=== PATIENT | male | born 1965 | race Hispanic/Latino ===

== ENCOUNTER 2018-01-27 08:00 | Emergency (ER) | payer OTHER ==
[~2018-01-27] VITALS: Ht 175.3 cm; Wt 113.4 kg
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
--- NOTE | 2018-01-27 08:00 | NUR ---
ARRIVAL 0723 STAFF PRESENT AT ARRIVAL DR MARIO ARREDONDO, RN N TANJA, RN B WILFREDO, RN T BHUPENDRA, RN C MARVEL, RT R LUKE, RN Héctor MCCOY, FUND ACCOUNTING MANAGER KAROLINE RODGERS WITH PT: EMS: QUIN LIFESTAR: KAITLYNN MCFADDEN ERIC, JAMES
--- NOTE | 2018-01-27 08:00 | NUR ---
ARRIVAL [facility] STATES UPON THEIR ARRIVAL TO ER THAT ON SCENE PT LOST PULSES, CPR WAS BEGUN AND EPI X 1 AMP GIVEN PER ACLS PROTOCOL. PT ACHEIVED ROSC AND CPR WAS STOPPED. PT HAD PULSES UPON ARRIVAL TO ER. Addendum: 01/27/18 at 1035 by ANNA ARRIVAL PT BEING VENTILATED VIA BVM. PT PLACED ON MONITOR.
--- NOTE | 2018-01-27 08:00 | NUR ---
BLOOD AT MEATUS PT CLOTHES REMOVED AT THIS TIME, BLOOD AT [facility]ATUS. [place] PERFORMED BY LIF[facility], PT PELVIS STABLE. DR MARTIN AWARE.
[2018-01-27] MEDS ORDERED: NS 1000ML 3,000 ML ONE (08:01)
[2018-01-27 08:02] VITALS: BP 129/79
--- NOTE | 2018-01-27 08:08 | NUR ---
RADIOLOGY FRANNY TEMPLETON BLOOD BANK LABORATORY TECHNOLOGIST AT BEDSIDE FOR CHEST AND PELVIS XRAY AT THIS TIME.
[2018-01-27 08:14] LABS: BASOPHIL % 0.4 % (0.0-0.2); EOSINOPHIL # 0.1 10^3/uL (0.0-0.2); HEMOGLOBIN 12.5 g/dL (13.9-16.3); LYMPHOCYTES # 5.1 10^3/uL (1.0-4.8); LYMPHOCYTES % 71.1 % (24.0-44.0); MEAN CELL HGB 31.3 pg (26-34); MEAN CELL HGB CONCENTRATION 32.3 g/dL (33-37); MEAN CORP VOLUME 96.8 fL (78-100); MEAN PLATELET VOLUME 12.5 fL (7.8-11.0); MONOCYTES # 0.3 10^3/uL (0.3-0.8); MONOCYTES % 3.9 % (5.0-12.0); NEUTROPHIL # 1.3 10^3/uL (1.8-7.7); NEUTROPHILS % 17.4 % (41.0-85.0); PLATELET COUNT 131 10^3/uL (150-400); RED CELL DISTRIBUTION WIDTH 12.7 % (11.5-14.5); WHITE BLOOD CELL 7.2 10^3/uL (4.5-11.0)
--- NOTE | 2018-01-27 08:15 | NUR ---
DR DARLINE GREGORIO NOTIFIED OF TRANSFER
--- NOTE | 2018-01-27 08:15 | NUR ---
GUERRERO 18 FR GUERRERO INSERTED BY Amrita HUIZAR RN USING STERILE TECHNIQUE. APPROXIMATELY 100ML OUTPUT OF BLOODY URINE.
--- NOTE | 2018-01-27 08:16 | PCM.EKG ---
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
--- NOTE | 2018-01-27 08:18 | NUR ---
ETT ETT PULLED BACK TO 23CM AT TEETH, 24CM AT LIP. PT CONTINUES TO BE VENTILATED VIA BVM.
[2018-01-27 08:19] VITALS: BP_SYST 124; BP_SYST 129; BP_DIAS 96
--- NOTE | 2018-01-27 08:21 | NUR ---
NGT NGT PLACED TO RIGHT NARE BY KAREN SNIDER. PT CONTINUES TO BE VENTILATED BY BVM.
--- NOTE | 2018-01-27 08:24 | DIREP ---
PROCEDURE:CHEST 1 VIEW COMPARISON:None. INDICATIONS:TUBE PLACEMENT FINDINGS: LUNGS/PLEURA:An endotracheal tube is in place with the tip in good position just below the clavicles. There is a small left pneumothorax. Infiltrate is seen in the left upper lobe. VASCULATURE:Normal. Unremarkable pulmonary vasculature. CARDIAC:Normal. No cardiac silhouette abnormality or cardiomegaly. MEDIASTINUM:Normal. No visible mass or adenopathy. BONES:There are multiple displaced left rib fractures. OTHER:Extensive subcutaneous emphysema is seen over the left side of the chest. Artifact from a backboard overlies the chest limiting evaluation. CONCLUSION:Placement of an endotracheal tube in good position. There is a small left pneumothorax with multiple displaced left rib fractures with extensive subcutaneous emphysema over the left chest. Infiltrate is seen in the left upper lobe. This report was called by telephone at 8:23 am on January 27, 2018 to Vasu Warner Mba . Dictated by: Dominick Rose M.D. on 01/27/2018 at 08:19 AM
--- NOTE | 2018-01-27 08:25 | NUR ---
[facility] CREW GETTING PT SECURED ON STRETCHER IN PREPARATION FOR TRANSPORT TO [facility]. PT CONTINUES TO BE VENTILATED VIA BVM.
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
--- NOTE | 2018-01-27 08:28 | NUR ---
XRAY REPORT DR MARTIN AT BEDSIDE, STATES THAT XRAY REPORTS SHOW PT HAS SMALL PNEUMOTHORAX ON LEFT SIDE OF CHEST, MULTIPLE RIB FRACTURES ON LEFT SIDE OF CHEST, PELVIS IS STABLE AND INTACT.
--- NOTE | 2018-01-27 08:33 | NUR ---
PULSE CHECK PT BLOOD PRESSURE DROPPING ON LIFESTAR MONITOR, PULSES CHECKED AT THIS TIME. NO PULSES PALPABLE. PT MOVED BACK TO ER STRETCHER. CPR BEGINS PER ACLS PROTOCOL. PT CONTINUES TO BE VENTILATED VIA BVM. PT REMAINS ON LIFESTAR MONITOR.
--- NOTE | 2018-01-27 08:34 | NUR ---
EPI 1 AMP EPI ADMINISTERED IV AT THIS TIME. HIGH QUALITY CPR CONTINUES. PT CONTINUES TO BE VENTILATED VIA BVM.
--- NOTE | 2018-01-27 08:35 | NUR ---
BLOOD BANK CALL TO LAB FOR 2 UNITS OF O NEGATIVE BLOOD AT THIS TIME.
--- NOTE | 2018-01-27 08:36 | NUR ---
PULSE CHECK CPR PAUSED AT THIS TIME FOR PULSE CHECK. PULSES PRESENT. CPR HELD AT THIS TIME, PT CONTINUES TO BE VENTILATED VIA BVM.
--- NOTE | 2018-01-27 08:38 | NUR ---
O NEGATIVE BLOOD 2 UNITS OF O NEGATIVE BLOOD HUNG AT THIS TIME.
--- NOTE | 2018-01-27 08:41 | NUR ---
NEEDLE DECOMPRESSION LEFT SIDE OF PT CHEST NOTED TO BE HYPERINFLATED. KAREN CALDERÓN PERFORMS NEEDLE DECOMPRESSION AT THIS TIME TO LEFT SIDE OF CHEST.
--- NOTE | 2018-01-27 08:43 | NUR ---
PULSE CHECK WEAK CAROTD AND FEMORAL PULSES PALPATED AT THIS TIME. PT CONTINUES TO BE VENTILATED VIA BVM.
--- NOTE | 2018-01-27 08:45 | NUR ---
CHEST TUBE 36FR CHEST TUBE INSERTED TO LEFT CHEST BY KAREN SNIDER USING STERILE TECHNIQUE. APPROXIMATELY 250CC OUTPUT OF BLOOD FROM LEFT CHEST WHEN CHEST TUBE INSERTED.
--- NOTE | 2018-01-27 08:47 | NUR ---
ATRIUM CHEST TUBE CHEST TUBE CONNECTED TO ATRIUM CHEST TUBE SYSTEM AT THIS TIME BY KAREN SNIDER.
--- NOTE | 2018-01-27 08:49 | NUR ---
O NEG FIRST UNIT OF O NEG COMPLETE.
--- NOTE | 2018-01-27 08:49 | NUR ---
PULSE CHECK PULSES PRESENT. PT CONTINUES TO BE VENTILATED VIA BVM.
[2018-01-27] MEDS ORDERED: WATER ONE (08:58)
--- NOTE | 2018-01-27 08:58 | NUR ---
NS 4TH LITER OF WARM IV FLUIDS ADMINISTERED AT THIS TIME. PT CONTINUES TO BE VENTILATED VIA BVM. PT REMAINS ON LIFESTAR MONITOR.
--- NOTE | 2018-01-27 09:02 | NUR ---
HEART RATE PT HEART RATE DROPPED TO 73BPM AT THIS TIME.
--- NOTE | 2018-01-27 09:02 | NUR ---
EPI 1 AMP EPI ADMINISTERED AT THIS TIME PER ACLS PROTOCOL.
--- NOTE | 2018-01-27 09:03 | NUR ---
FFP CALL TO LAB FOR 2 UNITS OF FFP AT THIS TIME.
--- NOTE | 2018-01-27 09:03 | NUR ---
PULSE CHECK PULSE CHECK AT THIS TIME, NO PALPABLE PULSES. CPR BEGINS FOLLOWING ACLS PROTOCOL. PT CONTINUES TO BE VENTILATED VIA BVM. PT REMAINS ON LIFESTAR MONITOR.
--- NOTE | 2018-01-27 09:04 | NUR ---
PULSE CHECK FEMORAL PULSES PRESENT. CPR STOPPED AT THIS TIME.
--- NOTE | 2018-01-27 09:07 | NUR ---
PULSE CHECK NO PALPABLE PULSES AT THIS TIME. CPR RESUMED VIA ACLS PROTOCOL.
--- NOTE | 2018-01-27 09:08 | NUR ---
EPI 1 AMP EPI ADMINISTERED IV AT THIS TIME PER ACLS PROTOCOL.
--- NOTE | 2018-01-27 09:08 | NUR ---
EPI DRIP ORDERED CALL TO PHARMACY FOR EPI DRIP AT THIS TIME.
--- NOTE | 2018-01-27 09:09 | NUR ---
PULSE CHECK PULSES PRESENT AT THIS TIME. CPR STOPPED. PT CONTINUES TO BE VENTILATED VIA BVM. PT REMAINS ON LIFESTAR MONITOR.
--- NOTE | 2018-01-27 09:10 | NUR ---
PULSE CHECK THREADY PULSES PALPABLE.
--- NOTE | 2018-01-27 09:11 | NUR ---
VBG ATTEMPT RT UNABLE TO FIND PULSE TO ATTEMPT ABG. VBG ATTEMPED AT THIS TIME BY KAREN MCFADDEN.
--- NOTE | 2018-01-27 09:12 | NUR ---
DR CANDIDO ZAVALETAA ON PHONE WITH DR REY
--- NOTE | 2018-01-27 09:12 | NUR ---
ALEXANDER HOLLIDAY RN TAKES OVER LILIAM AT THIS TIME.
[2018-01-27 09:13] LABS: CALCIUM 8.3 mg/dL (8.4-10.5); CARBON DIOXIDE 15.2 mmol/L (20.0-32)
--- NOTE | 2018-01-27 09:13 | NUR ---
DR CANDIDO JACKSON MBA CALLED DR REY AT THIS TIME REGARDING PT. DR REY WILL COME TO ER WHEN AVAILABLE.
--- NOTE | 2018-01-27 09:13 | NUR ---
EPI DRIP EPI DRIP STARTED AT 2MCG/MIN AT THIS TIME PER DR MAIRO ORDER.
--- NOTE | 2018-01-27 09:15 | NUR ---
DR CANDIDO REY IN ER 1 ASSESSING PT
--- NOTE | 2018-01-27 09:16 | NUR ---
CALL TO RADIOLOGY CALL TO RADIOLOGY FOR CHEST XRAY POST CHEST TUBE PLACEMENT.
--- NOTE | 2018-01-27 09:17 | NUR ---
ECHO Malu GRIER, RT AT BEDSIDE PERFORMING ECHO AT THIS TIME.
--- NOTE | 2018-01-27 09:18 | NUR ---
PULSE CHECK WEAK CAROTID PULSES PRESENT.
--- NOTE | 2018-01-27 09:20 | NUR ---
PULSE CHECK NO PALPABLE PULSES, CPR RESUMES PER ACLS PROTOCOL. PT CONTINUES TO BE VENTILATED VIA BVM. PT REMAINS ON LIFESTAR MONITOR.
--- NOTE | 2018-01-27 09:22 | NUR ---
EPI DRIP INCREASED EPI DRIP INCREASED TO 8MCG/MIN.
--- NOTE | 2018-01-27 09:22 | NUR ---
PULSE CHECK CPR PAUSED FOR PULSE CHECK. NO PALPABLE PULSES. HIGH QUALITY CPR RESUMED. PT CONTINUES TO BE VENTILATED VIA BVM. PT REMAINS ON LIFESTAR MONITOR.
--- NOTE | 2018-01-27 09:22 | NUR ---
BICARB 1 AMP BICARB ADMINISTERED AT THIS TIME VIA IV PER DR MARTIN ORDER.
--- NOTE | 2018-01-27 09:23 | NUR ---
PULSE CHECK CPR PAUSED FOR PULSE CHECK. WEAK PULSES PALPABLE. CPR PAUSED.
--- NOTE | 2018-01-27 09:26 | NUR ---
PULSE CHECK WEAK PULSES PALPABLE. PT CONTINUES TO BE VENTILATED VIA BVM. PT REMAINS ON LIFESTAR MONITOR.
--- NOTE | 2018-01-27 09:27 | NUR ---
DR CANDIDO REY LEFT BEDSIDE AT THIS TIME.
--- NOTE | 2018-01-27 09:27 | NUR ---
BICARB 1 AMP OF BICARB ADMINISTERED VIA IV AT THIS TIME PER DR MARTIN ORDER.
--- NOTE | 2018-01-27 09:28 | NUR ---
[facility] NOTIFIED OF TRANSFER TO [facility] WITH LIFESTAR CREW
--- NOTE | 2018-01-27 09:29 | NUR ---
LAB LAB STATES 15 MINUTES NEEDED BEFORE FFP READY. LAB WILL BRING 3RD UNIT OF O NEGATIVE.
--- NOTE | 2018-01-27 09:31 | NUR ---
USED CAR SALES MANAGER MOOK, USED CAR SALES MANAGER AT BEDSIDE FOR CHEST XRAY.
--- NOTE | 2018-01-27 09:33 | NUR ---
CHEST XRAY CHEST XRAY AT THIS TIME.
--- NOTE | 2018-01-27 09:33 | NUR ---
O NEG THIRD UNIT OF O NEGATIVE BLOOD ADMINISTERED AT THIS TIME.
--- NOTE | 2018-01-27 09:37 | NUR ---
INTAKE PT HAS HAD 2900ML OF IV FLUID INTAKE AT THIS TIME.
--- NOTE | 2018-01-27 09:38 | NUR ---
[facility] AT BEDSIDE FOR TRANSFER TO [facility].
[2018-01-27 09:39] LABS: ABG PCO2 53.8 mmHg (35.0-45.0); ABG PH 7.298 (7.350-7.450); BE(B) -1.6 mmol/L (-2.0-2.0); HCO3act 25.8 mmol/L (22.0-26.0); pO2 90.2 mmHg (75.0-100.0)
--- NOTE | 2018-01-27 09:40 | NUR ---
IO ATTEMPT IO ATTEMPT X2 BY KAREN MCFADDEN. UNSUCCESSFUL.
--- NOTE | 2018-01-27 09:44 | NUR ---
FFP AT BEDSIDE 2 UNITS FFP DELIVERED FROM LAB.
--- NOTE | 2018-01-27 09:46 | NUR ---
FFP FIRST UNIT OF FFP ADMINISTERED AT THIS TIME BY KAREN MCFADDEN. KAREN SNIDER HAS SECOND UNIT OF FFP TO ADMINISTER AFTER FIRST UNIT.
--- NOTE | 2018-01-27 09:55 | NUR ---
OUTPUT APPROXIMATELY 200ML OF BLOODY URINE OUTPUT IN GUERRERO BAG AT THIS TIME. B KAROLINE VILLALOBOS FLUSHED GUERRERO AT THIS TIME. NO ADDITIONAL OUTPUT.
--- NOTE | 2018-01-27 09:57 | NUR ---
[facility] PT TRANSFERRED TO EMS STRETCHER AT THIS TIME. PT CONTINUES TO BE VENTILATED VIA BVM. PT REMAINS ON LIFESTAR MONITOR.
--- NOTE | 2018-01-27 10:02 | NUR ---
PT LEFT DEPT PT LEFT DEPT WITH [facility] AT THIS TIME IN ROUTE TO [facility] ER FOR DR NAGEL[facility]
--- NOTE | 2018-01-27 10:06 | NUR ---
REPORT REPORT TO KAROLINE HOGAN [facility].
[2018-01-27] MEDS ORDERED: NS 1000ML 1,000 ML IV STA ×5 (10:44)
[2018-01-27] MEDS ORDERED: NS IV STA (10:44)
[2018-01-27] MEDS ORDERED: EPINEPHRINE IV STA (10:44)
--- NOTE | 2018-01-27 10:44 | NUR ---
X-RAY DONE FOR TUBE PLACEMENT, TUBE PULLED TO [address] MARTIN, PT VENTILATED VIA AMBU BAG, CPR DONE X 4 SEE NURSES NOTES, 0841 NEEDLE ASPIRATION FOLLOWED BY INSERTION OF CHEST TUBE TO LEFT, ABG DRAWN AND RESULTS REPORTED, PT LOADED TO EMS STRETCHER FOR TRANSFER, TRANSFERRED AT 1002, SEE NURSES NOTES
--- NOTE | 2018-01-27 11:30 | NUR ---
PLASMA LEFTY, KILLIAN, CALLED AND NOTIFIED US THAT THE PLASMA THAT PT GOT IS INCOMPATABLE DUE TO THE FACT PT IS "A" POSITIVE. CALLED [facility]AC[facility] TOLLIVER, SPOKE TO MIESHA RAMEY, AND INFORMED HER OF THE PLASMA SITUATION
[2018-01-27] MEDS ORDERED: EPINEPHRINE ONE (15:18)
[2018-01-27] MEDS ORDERED: SODIUM BICARBONATE IV ONE (15:18)
--- NOTE | 2018-01-28 09:24 | DIREP ---
PROCEDURE: CHEST 1 VIEW COMPARISON: [facility], CR, XRAY CHEST SINGLE VW, 01/27/2018, 07 :44 AM. INDICATIONS: trauma FINDINGS: LUNGS/PLEURA: Interval placement of left chest tube. No significant residual pneumothorax. Endotracheal tube, just inferior to the clavicles. Increased, diffuse bilateral interstitial prominence, likely representing pulmonary vascular congestion. VASCULATURE: Mildly prominent pulmonary vasculature. CARDIAC: Cardiomediastinal silhouette within normal limits. MEDIASTINUM: Normal. No visible mass or adenopathy. BONES: Stable appearance of displaced left rib fractures. OTHER: Artifact from backboard overlie the chest. Extensive subcutaneous emphysema seen seen within the visualized soft tissues. Interval placement of nasogastric catheter terminating inferior to the diaphragm CONCLUSION: 1. Interval placement of left chest tube. No significant residual pneumothorax. 2. Increased degree of subcutaneous emphysema. 3. Increased interstitial prominence, likely related to pulmonary vascular congestion. 4. Stable displaced left rib fractures. 5. Endotracheal tube just inferior to the clavicles, could be advanced 1-2 cm. Interval placement of nasogastric catheter. Chest CT can be performed for further evaluation if clinically warranted Dictated by: Don Marks MD on 01/27/2018 at 09:57 AM [facility]
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
== END 2018-01-27 10:05 | disposition short-term general hospital (02) ==
LOC: ER 08:00 → EDBD 08:00 → ER 10:05
DX: S22.42XA Multiple fractures of ribs, left side, initial encounter for closed fracture (principal); J93.9 Pneumothorax, unspecified; M79.602 Pain in left arm; R79.1 Abnormal coagulation profile; V49.9XXA Car occupant (driver) (passenger) injured in unspecified traffic accident, initial encounter; Y93.89 Activity, other specified; Y92.488 Other paved roadways as the place of occurrence of the external cause; Y99.8 Other external cause status
CPT/HCPCS: 36415; 36600; 71045 ×2; 72170; 80053; 82550; 82553; 82803; 84484; 85025; 86885; 86900 ×2; 86901; 86921 ×2; 92950; 93005; 96374; 99291; 99292; G0481; J0171; J7030; 96361; J3490